=== PATIENT | female | born 1980 | race Two or more races ===

== ENCOUNTER 2020-05-04 12:15 | Inpatient (IN) | payer OTHER ==
[~2020-05-04] VITALS: Ht 165.1 cm; Wt 66.2 kg
== END 2020-05-15 11:22 | disposition home or self-care (01) | DRG 807 ==
LOC: SURG-SUITE 05-13 00:36 → LDR 05-13 00:36 → SURG-SUITE 05-13 13:16 → OB/GYN 05-16 12:15
PROVIDERS: ADMIT Obstetrics & Gynecology Maternal & Fetal Medicine; ATTEND Obstetrics & Gynecology Maternal & Fetal Medicine
PROC: 10E0XZZ Delivery of Products of Conception, External Approach (ICD-10-PCS; principal; 2020-05-13)
PROC: 0KQM0ZZ Repair Perineum Muscle, Open Approach (ICD-10-PCS; 2020-05-13)
PROC: 0W8NXZZ Division of Female Perineum, External Approach (ICD-10-PCS; 2020-05-13)
PROC: 3E033VJ Introduction of Other Hormone into Peripheral Vein, Percutaneous Approach (ICD-10-PCS; 2020-05-13)
PROC: 10907ZC Drainage of Amniotic Fluid, Therapeutic from Products of Conception, Via Natural or Artificial Opening (ICD-10-PCS; 2020-05-13)
PROC: 4A1HXFZ Monitoring of Products of Conception, Cardiac Rhythm, External Approach (ICD-10-PCS; 2020-05-13)
DX: O70.1 Second degree perineal laceration during delivery (principal); Z37.0 Single live birth; Z3A.39 39 weeks gestation of pregnancy; Z20.822 Contact with and (suspected) exposure to COVID-19

== ENCOUNTER → 2020-05-09 | Outpatient (CLI) | payer OTHER | END | disposition home or self-care (01) | LOC: NST 00:39 | PROVIDERS: ATTEND Obstetrics & Gynecology | DX: Z34.83 Encounter for supervision of other normal pregnancy, third trimester (principal) ==

== ENCOUNTER 2020-10-06 12:06 | Outpatient (CLI) | payer OTHER | END 2020-10-06 18:31 | disposition home or self-care (01) | LOC: SONOGRAMA 12:06 | DX: N80.8 Other endometriosis (principal) ==